=== PATIENT | female | born 1960 | race Caucasian/White ===

== ENCOUNTER 2017-03-02 19:32 | Emergency (ER) | payer BC ==
[2017-03-02 19:41] VITALS: TEMP 98.8
--- NOTE | 2017-03-02 20:28 | ED ---
Lower Extremity Injury HPI - General Chief Complaint: Extremity Injury, Lower Stated Complaint: leg pain Time Seen by Provider: 03/02/17 19:54 Source: patient, RN notes reviewed, old records reviewed Mode of arrival: ambulatory Limitations: no limitations - History of Present Illness Initial Comments: This is a 56-year-old female with chief complaint of bilateral redness to her shins her proximally 1 day. Patient reports that she had and a strep infection in her nose and had a swollen lymph node in her neck prescribed Bactrim by her primary care provider. Patient reports that she's been taking Bactrim for the past day and a half. She states that last night she started noticed the area of the redness relates she states it feels warm and hot. She states that she feels flushed all over. She denies any nausea or vomiting abdominal pain. She denies any chest pain, shortness of breath. She reports she has a mild headache right now. - Related Data Home Medications Medication Instructions Recorded Confirmed Cholecalciferol [Vitamin D3] 4,000 unit PO DAILY 07/30/16 03/02/17 Hydroxychloroquine Sulfate 200 mg PO BID 07/30/16 03/02/17 [Plaquenil] Levothyroxine Sodium [Synthroid] 25 mcg PO HS 07/30/16 03/02/17 Losartan Potassium [Cozaar] 100 mg PO DAILY 07/30/16 03/02/17 Magnesium Gluconate [Magonate] 500 mg PO DAILY 03/02/17 03/02/17 Sulfamethox-Tmp 800-160Mg [Bactrim 1 tab PO Q12HR 03/02/17 03/02/17 DS 800-160 mg] Previous Rx's Medication Instructions Recorded diphenhydrAMINE [Benadryl] 25 mg PO QID PRN #15 capsule 03/02/17 predniSONE 20 mg PO BID 5 Days 03/02/17 Allergies Allergy/AdvReac Type Severity Reaction Status Date / Time Penicillins Allergy Rash/Hives Verified 03/02/17 20:14 Review of Systems ROS Statement: Those systems with pertinent positive or pertinent negative responses have been documented in the HPI. ROS Other: All systems not noted in ROS Statement are negative. Past Medical History Past Medical History: Hypertension, Rheumatoid Arthritis (RA), Thyroid Disorder History of Any Multi-Drug Resistant Organisms: None Reported Past Surgical History: Breast Surgery, Section, Orthopedic Surgery Additional Past Surgical History / Comment(s): BREAST BIOPSIES (LEFT APRIL 2013) , BILATERAL KNEE REPLACEMENTS (LEFT JUL 2014; RIGHT 10-18-14), X2 ( 1983;1989) Past Anesthesia/Blood Transfusion Reactions: Postoperative Nausea & Vomiting ( PONV) Past Psychological History: Anxiety, Depression Additional Psychological History / Comment(s): INTERMITTENT DEPRESSION (PATIENT STATES NOT DIAGNOSED, OCCASIONAL), ALSO BELIEVES SHE HAS ADD (NOT DIAGNOSED) Smoking Status: Never smoker Past Alcohol Use History: Rare Past Drug Use History: None Reported - Past Family History Mother Family Medical History: Coronary Artery Disease (CAD), Hypertension Additional Family Medical History / Comment(s): MOTHER IS IN 90'S, NEEDS VALVE REPLACED IN HEART,D/T AGE CANNOT BE PERFORMED. Father Family Medical History: Coronary Artery Disease (CAD), Hypertension General Exam Limitations: no limitations General appearance: alert, in no apparent distress Head exam: Present: atraumatic, normocephalic, normal inspection Eye exam: Present: normal appearance, PERRL, EOMI. Absent: scleral icterus, conjunctival injection, periorbital swelling ENT exam: Present: normal exam, mucous membranes moist Neck exam: Present: normal inspection. Absent: tenderness, meningismus, lymphadenopathy Respiratory exam: Present: normal lung sounds bilaterally. Absent: respiratory distress, wheezes, rales, rhonchi, stridor Cardiovascular Exam: Present: regular rate, normal rhythm, normal heart sounds. Absent: systolic murmur, diastolic murmur, rubs, gallop, clicks GI/Abdominal exam: Present: soft, normal bowel sounds. Absent: distended, tenderness, guarding, rebound, rigid Extremities exam: Present: normal inspection, full ROM, normal capillary refill , other (Patient has area of erythema over bilateral shins. The left henley is worse than the right.). Absent: tenderness, pedal edema, joint swelling, calf tenderness Back exam: Present: normal inspection Neurological exam: Present: alert, oriented X3, CN II-XII intact Psychiatric exam: Present: normal affect, normal mood Skin exam: Present: warm, dry, intact, normal color. Absent: rash Course Vital Signs 03/02/17 03/02/17 19:40 22:00 Temperature 98.8 F Pulse Rate 90 92 Respiratory 20 18 Rate Blood Pressure 191/84 150/70 O2 Sat by Pulse 96 95 Oximetry Medical Decision Making - Medical Decision Making Patient is a 56 year old female after being placed on bactrim for one day, she has a erythematous blanchable rash on bilateral shins. She reporst that the rash feels warm. Patient has been palced on bactrim for an infection in her nose. Patient reports she took the pills for 1 day. She has a history of RA. Patient rash was discussed with Dr. Proctor. He did see the patient, it appears to be a drug related reaction. Little concern for cellulitis. Patient lab work is reviewed and negative for leukocytosis. Patient given IV solumedrol, discussed follow with with PCP andpatient will be discharged with prednisone and bactroban for infection in nose. She report that it has diminished already. - Lab Data Result diagrams: 03/02/17 20:10 03/02/17 20:10 Lab Results 03/02/17 03/02/17 Range/Units 20:10 20:10 WBC 5.1 (3.8-10.6) k/uL RBC 4.48 (3.80-5.40) m/uL Hgb 13.3 (11.4-16.0) gm/dL Hct 40.2 (34.0-46.0) % MCV 89.7 (80.0-100.0) fL MCH 29.6 (25.0-35.0) pg MCHC 33.0 (31.0-37.0) g/dL RDW 13.4 (11.5-15.5) % Plt Count 166 (150-450) k/uL Neutrophils % 75 % Lymphocytes % 15 % Monocytes % 6 % Eosinophils % 1 % Basophils % 1 % Neutrophils # 3.8 (1.3-7.7) k/uL Lymphocytes # 0.8 L (1.0-4.8) k/uL Monocytes # 0.3 (0-1.0) k/uL Eosinophils # 0.1 (0-0.7) k/uL Basophils # 0.0 (0-0.2) k/uL Sodium 140 (137-145) mmol/L Potassium 4.0 (3.5-5.1) mmol/L Chloride 105 (98-107) mmol/L Carbon Dioxide 26 (22-30) mmol/L Anion Gap 9 mmol/L BUN 17 (7-17) mg/dL Creatinine 0.92 (0.52-1.04) mg/dL Est GFR (MDRD) Af Amer >60 (>60 ml/min/1.73 sqM) Est GFR (MDRD) Non-Af >60 (>60 ml/min/1.73 sqM) Glucose 110 H (74-99) mg/dL Calcium 9.5 (8.4-10.2) mg/dL Disposition Clinical Impression: Drug reaction Disposition: HOME SELF-CARE Condition: Good Instructions: Adverse Drug Reaction (ED) Additional Instructions: Continue use the Bactroban over the area of the nose. Patient advised to use complete the steroids and Benadryl. Return to emergency Department if the area of redness does not decrease. Prescriptions: diphenhydrAMINE [Benadryl] 25 mg PO QID PRN #15 capsule PRN Reason: Itching predniSONE 20 mg PO BID 5 Days Referrals: Asha Mar MD [Primary Care Provider] - 1-2 days Time of Disposition: 21:20
[2017-03-02] MEDS ORDERED: MUPIROCIN 2% OINT 22 GM TUBE TOPICAL ONE (20:45)
[2017-03-02 20:50] LABS: Basophils % (A) 1 %; CH 29.9; CHCM 33.5; Eosinophils # (A) 0.1 k/uL (0-0.7); Eosinophils % (A) 1 %; HCT 40.2 % (34.0-46.0); HDW 2.48; HGB 13.3 gm/dL (11.4-16.0); Luc % (Auto) 2; Lymphocytes # (A) 0.8 k/uL (1.0-4.8); Lymphocytes % (A) 15 %; MCH 29.6 pg (25.0-35.0); MCV 89.7 fL (80.0-100.0); Mean Platelet Volume 7.1; Monocytes # (A) 0.3 k/uL (0-1.0); Monocytes % (A) 6 %; Neutrophils # (A) 3.8 k/uL (1.3-7.7); Neutrophils % (A) 75 %; RBC 4.48 m/uL (3.80-5.40); RDW 13.4 % (11.5-15.5); WBC 5.1 k/uL (3.8-10.6); WBC (Perox) 5.15
[2017-03-02 21:06] LABS: Anion Gap 9 mmol/L; Blood Urea Nitrogen 17 mg/dL (7-17); Calcium 9.5 mg/dL (8.4-10.2); Carbon Dioxide 26 mmol/L (22-30); Chloride 105 mmol/L (98-107); Glucose 110 mg/dL (74-99); Non-African American GFR(MDRD) >60 (>60 ml/min/1.73 sqM); Sodium 140 mmol/L (137-145)
[2017-03-02] MEDS ORDERED: methylPREDNISolone SOD SUCCI 125 MG/2 ML VIAL IM ONE (21:23)
[2017-03-02] MEDS ORDERED: diphenhydrAMINE 25 MG CAP PO STA (21:23)
[2017-03-02] MEDS ORDERED: methylPREDNISolone SOD SUCCI 125 MG/2 ML VIAL IV STA (21:26)
[2017-03-02 22:07] VITALS: BP 150/70; PULSE 92; RESP 18
== END 2017-03-02 22:00 | disposition home or self-care (01) ==
LOC: EC 19:32
DX: T37.0X5A Adverse effect of sulfonamides, initial encounter (principal); I10 Essential (primary) hypertension; E07.9 Disorder of thyroid, unspecified; M06.9 Rheumatoid arthritis, unspecified; Z88.0 Allergy status to penicillin; Z79.899 Other long term (current) drug therapy
CPT/HCPCS: 99284; 96374; 36415; 80048; 85025; J2930

== ENCOUNTER → 2017-08-01 | Outpatient (CLI) | payer BC ==
--- NOTE | 2017-08-01 18:03 | CONS ---
CONSULTATION DATE OF CONSULTATION: 08/01/2017. 56-year-old lady has been evaluated in Sleep Center for obstructive sleep apnea- hypopnea syndrome. HISTORY OF PRESENT ILLNESS/SLEEP WAKE EVALUATION: Patient originally was diagnosed with obstructive sleep apnea more than 10 years ago. Then she underwent lap band surgery and lost about 100 pounds. Subsequently, she stopped her snoring and did not have problem with her breathing at that time. Then she started to increase her weight over the years about 50 pounds and she developed snoring again. SLEEP SCHEDULE: Presently, her sleep schedule from around 11:30 p.m. until 7:30 a.m. on working days and 8:00 am on weekends. FALLING ASLEEP: No problems with falling asleep. She does watch TV in bedroom. DURING SLEEP: Presently, she wakes up from sleep 2 times with nocturia, snoring and grinding teeth. DURING THE DAY/WAKE STATE: She feels some sleepiness. [place] Sleepiness Scale significantly increased to 14. She wakes up tired, has difficulties paying attention, worry about her sleep, has problem with concentration and anxiety. PAST MEDICAL HISTORY: Positive for hypertension, hypothyroidism, rheumatoid arthritis. Murmur on the heart since a childhood. PAST SURGICAL HISTORY: Lap band surgery, bilateral knee replacement. MEDICATIONS: 1. Synthroid. 2. Plaquenil. 3. Cozaar. 4. Vitamin D supplement. 5. Probiotics. SOCIAL HISTORY: Negative for smoking. Alcohol consumption very rarely. FAMILY HISTORY: Hypertension, heart problems, hyperlipidemia, arthritis, snoring, thyroid problems. REVIEW OF SYSTEMS: Multiple awakenings from sleep, excessive daytime sleepiness, sometimes swelling of the legs. No fevers No double vision. No recent chest pain. No shortness of breath. No abdominal pain. No bleeding episodes. No blood in urine. No seizure episodes. PHYSICAL EXAM: General: lady without distress. VITAL SIGNS: BP 157/76, HR 62, RR 16, height 5 foot 3, weight 245. Neck 15-1/2 inches. Temp 97.6. Oxygen saturation at room air 97%. HEENT: PERRLA, EOMI. Evaluation of oropharynx showed low position of soft palate. NECK: Supple. No JVD. Thyroid is not palpable. LUNGS: clear to percussion and to auscultation. Good air exchange. No wheezing or rhonchi. HEART: Systolic more on aorta. ABDOMEN: Obese. Soft and nontender. Bowel sounds are present. No organomegaly appreciated. EXTREMITIES: 1+ ankle edema. LINSEED CAKE TRIMMER: Awake, alert and oriented x3. Cranial nerves II through VII intact. There is no fasciculation or atrophy noted. No focal deficits observed. heart IMPRESSION: 1. History of obstructive sleep apnea for more than 10 years. The patient stopped using CPAP and stopped snoring after bariatric surgery and losing weight for more than 100 pounds. Presently increased her weight again and developed snoring and has multiple awakenings from sleep, extremely low position of soft palate, excessive daytime sleepiness. [place] Sleepiness Scale increased to 14. Obstructive sleep apnea-hypopnea syndrome. 2. Obesity, BMI 43.3. 3. Hypothyroidism. 4. Hypertension. 5. Rheumatoid arthritis. 6. Status post lap band surgery. 7. Status post bilateral knee replacement. 8. Swelling of ankles. PLAN: 1. Polysomnography for evaluation of patient's breathing during sleep. 2. CPAP/BiPAP titration if sleep study confirms obstructive sleep apnea-hypopnea syndrome. 3. Preferable position during sleep on the side. 4. No driving if patient feels any sleepiness. Patient is aware of civil and criminal liability for unsafe driving. 5. I will see the patient for follow-up visit to explain results of the testing and following plan. Thank you very much for referring this patient for consultation. Sincerely, Dangelo Shah MD, PhD, FAASM Diplomat of [place] [employer], Sleep Medicine Board by [place] [employer] [place] [employer] Resource Manager of [facility] [place] MMODL / YOSEFN: [id number] /
== END ==
LOC: SLEEP 15:07
PROVIDERS: ATTEND Internal Medicine
DX: G47.33 Obstructive sleep apnea (adult) (pediatric) (principal); E66.9 Obesity, unspecified; E03.9 Hypothyroidism, unspecified; I10 Essential (primary) hypertension; M06.9 Rheumatoid arthritis, unspecified; M79.89 Other specified soft tissue disorders; Z96.653 Presence of artificial knee joint, bilateral; Z98.890 Other specified postprocedural states; Z68.41 Body mass index [BMI] 40.0-44.9, adult; Z79.899 Other long term (current) drug therapy
CPT/HCPCS: 99211

== ENCOUNTER → 2017-11-14 | Outpatient (CLI) | payer BC ==
--- NOTE | 2017-11-14 16:18 | PN ---
PROGRESS NOTE DATE OF SERVICE: 11/14/2017. 57-year-old lady has been followed in Sleep Center for treatment of obstructive sleep apnea-hypopnea syndrome. Recently patient had been diagnosed with obstructive sleep apnea-hypopnea syndrome by home sleep apnea test. I discussed results of the test with the patient. Then she was started on treatment with auto PAP and this is her first visit after she was started on treatment with CPAP. I checked her CPAP unit. CPAP pressure in the range of 5 to 15 on automatic regimen. Usage from the machine is 24/30 nights total and 20/30 nights for more than 4 hours with a average usage is 5.0 hours. Most of the time pressure is in the range of 11 cm of water. Leak is 28 L/minutes which is acceptable. Apnea-hypopnea index is only 1.3, which is perfect. Leak is up to 27.3%. The patient feels better when she is using her CPAP. [place] Sleepiness Scale today is only 3. MEDICATIONS: Plaquenil, thyroid supplement, lisinopril. PHYSICAL EXAM: GENERAL Patient in no distress. VITAL SIGNS BP 158/79, HR 64, RR 16, weight 249, temp 97.2, oxygen saturation room air 98% on room. HEENT PERRLA, EOMI, evaluation of oropharynx showed low position of soft palate. NECK Supple, no JVD. Thyroid is not palpable. LUNGS Clear to percussion and to auscultation. Good air exchange. No wheezing or rhonchi. HEART S1, S2 regular. No gallops or rubs. Systolic murmur on aorta. ABDOMEN Obese. Soft and nontender. Bowel sounds are present. No organomegaly appreciated. EXTREMITIES No clubbing or cyanosis. TIMBER TREATING TANK OPERATOR Awake, alert, and oriented X3. Cranial nerves 2 to 7 intact. There is no fasciculation or atrophy. noted. No focal deficits observed. IMPRESSION: 1. Obstructive sleep apnea-hypopnea syndrome on control with auto PAP. The patient demonstrated borderline compliance with treatment, benefitting from treatment. 2. Obesity. 3. Hypertension. 4. Hypothyroidism. 5. Rheumatoid arthritis. PLAN: 1. Continue treatment with CPAP every night for the whole night. 2. Losing weight. 3. Sleep hygiene with regular time in bed for at least 8 hours. 4. No driving if feeling sleepiness. Thank you very much for allowing me to participate in management of your patient. Sincerely, Dangelo Shah MD, PhD, FAASM Diplomat of [place] [employer] [place] [employer] Deputy Chief Sheriff of [facility] [place] EMMIE / CORNELIUS: [id number] /
== END | disposition home or self-care (01) ==
LOC: SLEEP 15:07
PROVIDERS: ATTEND Internal Medicine
DX: G47.33 Obstructive sleep apnea (adult) (pediatric) (principal); E66.9 Obesity, unspecified; I10 Essential (primary) hypertension; E03.9 Hypothyroidism, unspecified; M06.9 Rheumatoid arthritis, unspecified

== ENCOUNTER → 2019-04-17 | Day surgery (SDC) | payer BC ==
[2019-04-15 15:39] VITALS: BMI 42.5
[~2019-04-17] MED LIST: LACTATED RINGERS 1,000 ML IV SCH; LIDOCAINE 1% 20 ML VIAL (10MG/ML) FOR IV START INTRADERMA PRN; LIDOCAINE 1% INJ 10MG/ML (20 ML MDV) ONE; PROPOFOL 10 MG/ML 20 ML VIAL IV ONE
[2019-04-17 09:34] VITALS: TEMP 97.3
[2019-04-17 10:28] VITALS: RESP 17
--- NOTE | 2019-04-17 10:29 | P.PCN ---
Date of Procedure: 04/17/19 Procedure(s) Performed: BRIEF HISTORY: Patient is a 58-year-old pleasant female, scheduled for an elective colonoscopy as a part of evaluation of chronic diarrhea for the last few months duration. She has vomited from 3-10 day still somewhat consistency. Denies any blood or mucus in the stool. She isn't scheduled for colonoscopy to evaluate further. PROCEDURE PERFORMED: Colonoscopy with biopsy. PREOPERATIVE DIAGNOSIS: Left lower quadrant abdominal pain and chronic diarrhea.. IV sedation per Anesthesia. PROCEDURE: After informed consent was obtained, the patient, was brought into the endoscopy unit. IV sedation was administered by Anesthesia under continuous monitoring. Digital rectal examination was normal. Initially the Olympus CF-160 flexible video colonoscope was then inserted in the rectum, gradually advanced into the cecum without any difficulty. Careful examination was performed as the scope was gradually being withdrawn. Ileocecal valve and the appendiceal orifice were visualized and appeared normal. Prep was excellent. Mucosa of the cecum, ascending colon, transverse colon, descending colon appeared normal. Random biopsies were done from ascending and descending colon to rule out microscopic/collagenous colitis. There was mild diverticulitis in the sigmoid colon noted with some Purulent discharge from one of the diverticulum. There were scattered sigmoid diverticulosis seen. Rest of the, sigmoid colon, and rectum appeared normal. Retroflexion was performed in the rectum and no lesions were seen. The patient tolerated the procedure well. IMPRESSION: Mild sigmoid diverticulitis Scattered sigmoidal diverticulosis No evidence of colitis or colorectal neoplasia RECOMMENDATIONS: Findings of this examination were discussed with the patient as well as a family. He was advised to follow with the biopsy results. In the meantime she'll be given a trial of Flagyl and Cipro for 10 days she'll be seen in the office in 3 weeks
[2019-04-17 10:44] VITALS: BP 147/85; PULSE 64
== END ==
LOC: ORWHC2ENDO 08:53
PROVIDERS: ATTEND Internal Medicine Gastroenterology
DX: K57.32 Diverticulitis of large intestine without perforation or abscess without bleeding (principal); K57.30 Diverticulosis of large intestine without perforation or abscess without bleeding; K52.9 Noninfective gastroenteritis and colitis, unspecified; I10 Essential (primary) hypertension; E07.9 Disorder of thyroid, unspecified; F39 Unspecified mood [affective] disorder; Z79.1 Long term (current) use of non-steroidal anti-inflammatories (NSAID); Z79.890 Hormone replacement therapy; Z79.899 Other long term (current) drug therapy
CPT/HCPCS: 45380; 88305; J2001; J2704

== ENCOUNTER → 2019-05-19 | Outpatient (CLI) | payer BC ==
[2019-05-19 15:55] VITALS: BP 150/71; PULSE 66; TEMP 98.6; BMI 42.0
--- NOTE | 2019-05-19 16:08 | P.BASOAP ---
Subjective Progress Note Date: 05/19/19 Principal diagnosis: Morbid obesity Patient returns today for recheck. Had her initial lap band placed by Dr. Morris. Last adjustment 2015. Had 0.5 added for a total of 2.5 at that time. Intermittently over the years she has had issues related to diarrhea. This has been bad lately with up to 12 times per day usually aggravated by food intake. Better with bland diet. Has been incontinent at times. Mild left lower quadrant pain at times. Recent colonoscopy done by GI. Has some relief with Lomotil. States Bentyl causes significant constipation issues. Would like to try emptying her band to see if this would help. No dysphagia. No nausea or vomiting. Objective - Vital Signs Vital signs: Vital Signs Temp 98.6 F 05/19/19 15:52 Pulse 66 05/19/19 15:52 Resp BP 150/71 05/19/19 15:52 Pulse Ox Intake & Output 05/18/19 05/19/19 05/19/19 18:59 06:59 18:59 Weight 109.361 kg - Exam Abdomen: Soft, nontender, nondistended Assessment/Plan (1) Morbid obesity Narrative/Plan: Will into the patient's band at this time to see if this helps with her diarrhea although I told the patient is likely would not make a difference. 2.4 mL was evacuated aseptically using a Small needle. No further fluid within the band. Follow-up as needed. Plan: Date: 05/19/19 Initial Weight: Initial BMI: Current Weight: 109.361 kg Current BMI: 42.0 Type of Surgery: Total Volume in Band: 0 Previous Volume: 2.5 Volume Removed: 2.4 Volume Added: Band Size:
== END | disposition home or self-care (01) ==
LOC: BARWHC3 15:02
PROVIDERS: ATTEND Surgery
DX: E66.01 Morbid (severe) obesity due to excess calories (principal); Z68.41 Body mass index [BMI] 40.0-44.9, adult
CPT/HCPCS: 99212

== ENCOUNTER → 2019-08-18 | Outpatient (CLI) | payer BC ==
[2019-08-18 16:10] VITALS: BP 146/83; PULSE 64; RESP 16; TEMP 98.5; BMI 42.9
--- NOTE | 2019-08-18 22:26 | P.BASOAP ---
Subjective Progress Note Date: 08/18/19 Principal diagnosis: Morbid obesity Patient had her band emptied last visit. This did not have an effect on her chronic diarrhea unfortunately. She has been worked up for her diarrhea by GI. He is interested in having fluid back to the band. 2.4 cc Was previously removed.does have some increased reflux since her band was emptied. Objective - Vital Signs Vital signs: Vital Signs Temp 98.5 F 08/18/19 16:07 Pulse 64 08/18/19 16:07 Resp 16 08/18/19 16:07 BP 146/83 08/18/19 16:07 Pulse Ox Intake & Output 08/18/19 08/18/19 08/19/19 06:59 18:59 06:59 Weight 111.584 kg - Exam Abdomen: Soft, nontender, nondistended Assessment/Plan (1) Morbid obesity Narrative/Plan: Will add 1.5 cc to the patient's band. This was performed in an aseptic technique with a Small needle. Patient tolerated water following that. Patient will contact me for follow-up. Plan: Date: 08/18/19 Initial Weight: Initial BMI: Current Weight: 111.584 kg Current BMI: 42.9 Type of Surgery: Total Volume in Band: 0 Previous Volume: Volume Removed: Volume Added: Band Size:
== END ==
LOC: BARWHC3 15:23
PROVIDERS: ATTEND Surgery
DX: E66.01 Morbid (severe) obesity due to excess calories (principal); Z68.41 Body mass index [BMI] 40.0-44.9, adult
CPT/HCPCS: 99212

== ENCOUNTER → 2021-06-06 | Outpatient (CLI) | payer BC ==
[2021-06-06 14:30] VITALS: BP 145/81; PULSE 69; TEMP 98.2; BMI 43.4
--- NOTE | 2021-06-06 14:33 | P.BASOAP ---
Subjective Progress Note Date: 06/06/21 Principal diagnosis: Morbid obesity Patient returns for reevaluation. She was last seen in August 2019. Recently she was lifting some heavy objects and felt an increased pain at her port site. That pain has since resolved. She has gained 3 pounds. She is asking for a band adjustment at this time. Denies nausea and vomiting. No heartburn. Objective - Vital Signs Vital signs: Vital Signs Temp 98.2 F 06/06/21 14:28 Pulse 69 06/06/21 14:28 Resp BP 145/81 06/06/21 14:28 Pulse Ox Intake & Output 06/05/21 06/06/21 06/06/21 18:59 06:59 18:59 Weight 112.945 kg - Exam Abdomen: Soft, nontender, nondistended, no palpable hernia, mild tenderness at port site Assessment/Plan (1) Morbid obesity Narrative/Plan: Patient doing well at this time. Requesting a band adjustment. Currently has 1.5 mL in her band. It was emptied when she was at 2.4. We will increase to 2.0 mL at this time. Patient will contact me if she has any recurrent symptoms of pain at her port site. The patient's lap band port was palpated. The site was aseptically prepped. The Small needle was advanced into the port. A total of 0.5 ml of fluid was added for a total of 2.0 mL. Pressure was held and a sterile dressing was applied. Plan: Date: 06/06/21 Initial Weight: Initial BMI: Current Weight: 112.945 kg Current BMI: 43.4 Type of Surgery: Total Volume in Band: 2.0 Previous Volume: Volume Removed: Volume Added: 0.5 Band Size:
== END ==
LOC: BARWHC3 13:52
PROVIDERS: ATTEND Surgery
DX: E66.01 Morbid (severe) obesity due to excess calories (principal); Z46.51 Encounter for fitting and adjustment of gastric lap band; Z68.41 Body mass index [BMI] 40.0-44.9, adult; Z88.0 Allergy status to penicillin; Z88.2 Allergy status to sulfonamides
CPT/HCPCS: 99212

== ENCOUNTER → 2021-08-28 | Outpatient (CLI) | payer BC ==
[2021-08-28 15:46] VITALS: BP 152/76; PULSE 72; RESP 18; TEMP 98.2; BMI 42.3
--- NOTE | 2021-08-28 16:01 | P.HPBAR ---
Bariatric H&P - History & Physicial H&P Date: 08/28/21 History & Physicial: Visit/CC: follow up / lap band Patient initial contact: Initial weight: Initial weight in pounds: Height: 5 ft 3.5 in Initial BMI: Last weight: Current weight: 110.223 kg Current weight in pounds: 243.00 Current BMI: 42.3 Anton body weight (based on NIH guidelines): 53.297 kg Excess body weight loss: The patient is a 61 year-old F who presents for Bariatric Assessment. Patient has complaints of pain at her LAP-BAND port site. She is requesting have her LAP-BAND device removed. Past Medical History Past Medical History: Hypertension, Osteoarthritis (OA), Rheumatoid Arthritis (RA), Thyroid Disorder Additional Past Medical History / Comment(s): freq diarrhea, gas/gurgling (diverticulitis dx 04/17/[address] Mcintyre), hypothyroidism, History of Any Multi-Drug Resistant Organisms: None Reported Past Surgical History: Breast Surgery, Section, Orthopedic Surgery Additional Past Surgical History / Comment(s): BREAST BIOPSIES (LEFT APRIL 2013 Right side date unknown)), BILATERAL KNEE REPLACEMENTS (LEFT JUL 2014; RIGHT 10-18-14), X2 (1983;1989),lap band-fluid present Past Anesthesia/Blood Transfusion Reactions: Postoperative Nausea & Vomiting (PONV) Additional Past Anesthesia/Blood Transfusion Reaction / Comm: No blood transfusion to date (05/19/19) Past Psychological History: ADD/ADHD, Anxiety, Depression Additional Psychological History / Comment(s): INTERMITTENT DEPRESSION (PATIENT STATES NOT DIAGNOSED, OCCASIONAL), ALSO BELIEVES SHE HAS ADD (NOT DIAGNOSED) Smoking Status: Never smoker Past Alcohol Use History: Rare Past Drug Use History: None Reported - Past Family History Mother Family Medical History: Coronary Artery Disease (CAD), Hypertension Additional Family Medical History / Comment(s): at age 93 from old age. also had abdominal aortic aneurysm for years Father Family Medical History: Coronary Artery Disease (CAD), Hypertension Additional Family Medical History / Comment(s): at age 88 from heart attack Surgical - Exam Vital Signs Temp Pulse Resp BP 98.2 F 72 18 152/76 08/28/21 15:22 08/28/21 15:22 08/28/21 15:22 10/18/21 15:22 - General well developed, well nourished, no distress - Eyes PERRL - ENT normal pinna - Neck no masses - Respiratory normal expansion - Cardiovascular Rhythm: regular - Abdomen Mild tenderness at LAP-BAND port site Abdomen: soft, non tender Bariatric Assessment & Plan Plan: Pain at LAP-BAND port site. Patient was scheduled for removal of LAP-BAND device. She is aware the risk of weight gain. Bariatric Checklist Checklist: Plan: Checklist: EGD: 1. Hiatal hernia: 2. H. Pylori: HgbA1c: Vitamin D: Smoking: Never smoker Primary care physician referral: [facility] Psychiatry clearance: Cardiology clearance: Sleep study: Diet journal: VTE risk score: VTE risk level: Rehab needs at discharge:
[2021-08-28 16:16] LABS: Basophils % (A) 1 %; Eosinophils % (A) 1 %; HGB 13.5 gm/dL (11.4-16.0); Lymphocytes # (A) 0.9 k/uL (1.0-4.8); Lymphocytes % (A) 17 %; MCH 29.8 pg (25.0-35.0); MCHC 32.2 g/dL (31.0-37.0); MCV 92.6 fL (80.0-100.0); Mean Platelet Volume 8.1; Monocytes # (A) 0.3 k/uL (0-1.0); Monocytes % (A) 6 %; Neutrophils # (A) 3.8 k/uL (1.3-7.7); Neutrophils % (A) 73 %; Platelet Count 184 k/uL (150-450); RBC 4.53 m/uL (3.80-5.40); RDW 12.8 % (11.5-15.5); WBC 5.3 k/uL (3.8-10.6)
[2021-08-29 05:16] LABS: ALT 20 U/L (8-44); AST 18 U/L (13-35); African American GFR (CKD) 82.5 (60.0-200.0); Albumin 4.7 g/dL (3.8-4.9); Alkaline Phosphatase 73 U/L (41-126); BUN/Creat Ratio 20.18 Ratio (12.00-20.00); Blood Urea Nitrogen 17.6 mg/dL (9.0-27.0); Calcium 9.6 mg/dL (8.7-10.3); Carbon Dioxide 22.5 mmol/L (21.6-31.8); Chloride 102 mmol/L (96-109); Globulin 2.3 g/dL (1.6-3.3); Glucose 112 mg/dL (70-110); Non-African American GFR(CKD) 71.2 (60.0-200.0); Potassium 4.1 mmol/L (3.5-5.5); Sodium 141 mmol/L (135-145)
[2021-08-29 05:51] LABS: Folate, Serum >20.00 ng/mL (4.40-31.00)
== END ==
LOC: BARWHC3 15:01
PROVIDERS: ATTEND Surgery
DX: Z08 Encounter for follow-up examination after completed treatment for malignant neoplasm (principal); I10 Essential (primary) hypertension; M19.90 Unspecified osteoarthritis, unspecified site; M06.9 Rheumatoid arthritis, unspecified; E03.9 Hypothyroidism, unspecified; Z98.84 Bariatric surgery status; F90.9 Attention-deficit hyperactivity disorder, unspecified type; F32.9 Major depressive disorder, single episode, unspecified; F41.9 Anxiety disorder, unspecified; Z88.0 Allergy status to penicillin; Z88.2 Allergy status to sulfonamides
CPT/HCPCS: 80053; 82306; 82607; 82746; 83036; 84425; 85025; 93005; 99212

== ENCOUNTER → 2021-08-28 | Outpatient (CLI) | payer BC | END | disposition home or self-care (01) | LOC: LABWHC1 15:30 | PROVIDERS: ATTEND Surgery | DX: E88.81 Metabolic syndrome and other insulin resistance (principal); E55.9 Vitamin D deficiency, unspecified; M25.50 Pain in unspecified joint; Z79.01 Long term (current) use of anticoagulants; Z79.02 Long term (current) use of antithrombotics/antiplatelets; M06.4 Inflammatory polyarthropathy; E66.01 Morbid (severe) obesity due to excess calories | CPT/HCPCS: 36415; 85652; 86140 ==

== ENCOUNTER 2021-09-06 06:37 | Day surgery (SDC) | payer BC ==
[2021-09-04 15:07] VITALS: BMI 41.8
[~2021-09-06 06:37] MED LIST changes: -LIDOCAINE 1% 20 ML VIAL (10MG/ML) FOR IV START INTRADERMA PRN; -LIDOCAINE 1% INJ 10MG/ML (20 ML MDV) ONE; +ONDANSETRON 4 MG/2 ML VIAL IVP ONE; -PROPOFOL 10 MG/ML 20 ML VIAL IV ONE; +SCOPOLAMINE 1.5MG/72HR PATCH TRANSDERM ONE
[2021-09-06] MEDS ORDERED: HYDROmorphone 0.5 MG/0.5 ML SYRINGE IVP PRN (07:00)
[2021-09-06] MEDS ORDERED: DEXAMETHASONE SOD PHOSPHATE 4 MG/ML 1 ML VIAL IVP ONE (07:04)
[2021-09-06] MEDS: ENOXAPARIN 40 MG/0.4 ML SYRINGE SQ STA ×2 (07:04→07:55)
[2021-09-06] MEDS ORDERED: LIDOCAINE 1% (10MG/ML) FOR IV START INTRADERMA ONE (07:04)
[2021-09-06] MEDS ORDERED: LIDOCAINE 1% INJ 10MG/ML (20 ML MDV) ONE (08:01)
[2021-09-06] MEDS ORDERED: fentaNYL (PF) 50 MCG/ML 2 ML AMP ONE (08:01)
[2021-09-06] MEDS ORDERED: SUCCINYLCHOLINE CHLORIDE 100 MG/5 ML SYR IV ONE (08:01)
[2021-09-06] MEDS ORDERED: MIDAZOLAM 2 MG/2 ML VIAL ONE (08:01)
[2021-09-06] MEDS ORDERED: GLYCOPYRROLATE 0.2 MG/ML 2 ML VIAL ONE (08:01)
[2021-09-06] MEDS ORDERED: ROCURONIUM 10 MG/ML (5 ML VIAL) IV ONE (08:01)
[2021-09-06] MEDS ORDERED: NEOSTIGMINE 1 MG/ML 10 ML VIAL ONE (08:01)
[2021-09-06] MEDS ORDERED: PROPOFOL 10 MG/ML 20 ML VIAL IV ONE (08:01)
--- NOTE | 2021-09-06 08:01 | P.GSHP ---
History of Present Illness H&P Date: 09/06/21 Chief Complaint: GERD, dysphagia This is a 61-year-old female who presents today for removal of LAP-BAND system. She had chronic issues with GERD and dysphagia. She wishes to have the LAP-BAND system removed. Past Medical History Past Medical History: Hypertension, Osteoarthritis (OA), Rheumatoid Arthritis (RA), Sleep Apnea/CPAP/BIPAP, Thyroid Disorder Additional Past Medical History / Comment(s): freq diarrhea, hx diverticulitis, hypothyroidism, heart murmur., varicose veins., C-pap machine. History of Any Multi-Drug Resistant Organisms: None Reported Past Surgical History: Breast Surgery, Section, Orthopedic Surgery Additional Past Surgical History / Comment(s): BREAST BIOPSIES, BILATERAL KNEE REPLACEMENTS (2013) X2 ,lap band-fluid (09/2001) Past Anesthesia/Blood Transfusion Reactions: Previous Problems w/ Anesthesia, Postoperative Nausea & Vomiting (PONV) Additional Past Anesthesia/Blood Transfusion Reaction / Comment(s): mother=migraines post-op Past Psychological History: Anxiety, Depression Smoking Status: Never smoker Past Alcohol Use History: Occasional Past Drug Use History: None Reported - Past Family History Mother Family Medical History: Coronary Artery Disease (CAD), Hypertension Additional Family Medical History / Comment(s): at age 93 from old age. also had abdominal aortic aneurysm for years Father Family Medical History: Coronary Artery Disease (CAD), Hypertension Additional Family Medical History / Comment(s): at age 88 from heart attack Medications and Allergies Home Medications Medication Instructions Recorded Confirmed Type Hydroxychloroquine Sulfate 200 mg PO BID 07/30/16 09/06/21 History [Plaquenil] Levothyroxine Sodium [Synthroid] 25 mcg PO HS 07/30/16 09/06/21 History Losartan Potassium [Cozaar] 100 mg PO HS 07/30/16 09/06/21 History Diclofenac Sodium Gel [Voltaren 1 dose TOPICAL BID PRN 04/15/19 09/06/21 History Gel] L.acidoph,Paracasei, B.lactis 1 each PO DAILY 04/15/19 09/06/21 History [Probiotic] Calcium Carbonate [Calcium] 1,200 mg PO DAILY 09/04/21 09/06/21 History Cholecalciferol [Vitamin D3 (10 40 mcg PO DAILY 09/04/21 09/06/21 History Mcg = 400 Iu)] Loperamide [Imodium] 2 mg PO DIRECTED PRN 09/04/21 09/06/21 History Allergies Allergy/AdvReac Type Severity Reaction Status Date / Time Penicillins Allergy Rash/Hives Verified 09/06/21 07:02 sulfamethoxazole Allergy redness Verified 09/06/21 07:02 [From Bactrim] love legs trimethoprim [From Bactrim] Allergy redness Verified 09/06/21 07:02 love legs Surgical - Exam Vital Signs Temp Pulse Resp BP Pulse Ox 98.6 F 72 16 163/73 98 09/06/21 07:03 09/06/21 07:03 09/06/21 07:03 09/06/21 07:03 09/06/21 07:03 - General well developed, well nourished, no distress - Eyes PERRL - ENT normal pinna - Neck no masses - Respiratory normal expansion - Cardiovascular Rhythm: regular - Abdomen Abdomen: soft, non tender Assessment and Plan Assessment: GERD, dysphagia. We'll perform removal of LAP-BAND system.
[2021-09-06] MEDS ORDERED: BUPIVACAIN-EPI 0.25%-1:200,000 30 ML VIAL SQ ONE (08:34)
[2021-09-06] MEDS ORDERED: LACTATED RINGERS 1,000 ML IV ONE ×2 (08:45)
[2021-09-06 09:10] VITALS: TEMP 97
--- NOTE | 2021-09-06 09:13 | P.OP ---
Date of Procedure: 09/06/21 Preoperative Diagnosis: GERD, dysphagia Postoperative Diagnosis: GERD, dysphagia Procedure(s) Performed: Removal of LAP-BAND system Anesthesia: DEANN Surgeon: David Morris Estimated Blood Loss (ml): 10 Pathology: none sent Condition: stable Disposition: PACU Description of Procedure: Patient's placed the operative table in the supine position. She received general anesthesia. She was then placed in dorsal lithotomy position. Her abdomen was prepped and draped usual sterile fashion. The skin incision sites were anesthetized 1% local Xylocaine. The skin was incised at the port site. Using blunt and sharp dissection with cautery the LAP-BAND port was dissected free. The PEG tube was then cut. Using the 5 mm optical trocar under direct visualization incision he peritoneal catheter. The abdomen was insufflated. Next a fibrillar trocar is placed in the right upper quadrant right lateral and left lateral position. Another 5 atrocious placed in the left periumbilical position. The trochars the ports was replaced the 15 mm trocar. The liver was retracted. The laparoscopic tube was followed to the band. The adhesions over the LAP-BAND device were lysed using left cautery. The LAP-BAND was then cut using the Harmonic scissors. And then the LAP-BAND was extracted through the 15 mm trocar site. There is no injury to the stomach. These abdomen was desufflated. The skin incision sites were closed with 3-0 Monocryl suture. Dermabond was applied. Top she will was sent to recovery room in stable condition.
[2021-09-06] MEDS ORDERED: ONDANSETRON 4 MG/2 ML VIAL IVP ONE (09:29)
[2021-09-06 10:21] VITALS: RESP 16
[2021-09-06 10:55] VITALS: BP 131/77; PULSE 65
== END 2021-09-06 11:12 | disposition home or self-care (01) ==
LOC: OR 06:37
PROVIDERS: ATTEND Surgery
DX: R13.10 Dysphagia, unspecified (principal); I10 Essential (primary) hypertension; M19.90 Unspecified osteoarthritis, unspecified site; M06.9 Rheumatoid arthritis, unspecified; K21.9 Gastro-esophageal reflux disease without esophagitis; G47.30 Sleep apnea, unspecified; E03.9 Hypothyroidism, unspecified; F41.9 Anxiety disorder, unspecified; R01.1 Cardiac murmur, unspecified; I83.90 Asymptomatic varicose veins of unspecified lower extremity; Z96.653 Presence of artificial knee joint, bilateral; Z98.891 History of uterine scar from previous surgery; Z98.890 Other specified postprocedural states; Z87.19 Personal history of other diseases of the digestive system; Z82.49 Family history of ischemic heart disease and other diseases of the circulatory system; Z79.890 Hormone replacement therapy; Z79.899 Other long term (current) drug therapy; Z88.0 Allergy status to penicillin; Z88.2 Allergy status to sulfonamides
CPT/HCPCS: 43774; J2250; J1100; J2710; J0690; J2405; J2001; J1650; J3010; J0330; J2704; J1170

== ENCOUNTER → 2021-09-11 | Outpatient (CLI) | payer BC ==
[2021-09-11 16:26] VITALS: BP 173/80; PULSE 66; RESP 16; TEMP 98.7; BMI 41.6
--- NOTE | 2021-09-21 19:39 | P.HPBAR ---
Bariatric H&P - History & Physicial H&P Date: 09/11/21 History & Physicial: Visit/CC: Band Removal f/u Patient initial contact: Initial weight: Initial weight in pounds: Height: 5 ft 3.5 in Initial BMI: Last weight: Current weight: 108.409 kg Current weight in pounds: 239.00 Current BMI: 41.6 Rosamond body weight (based on NIH guidelines): 53.297 kg Excess body weight loss: The patient is a 61 year-old F who presents for Bariatric Assessment. Patient is status post removal LAP-BAND. She has some minimal complaints of pain. Past Medical History Past Medical History: Hypertension, Osteoarthritis (OA), Rheumatoid Arthritis (RA), Sleep Apnea/CPAP/BIPAP, Thyroid Disorder Additional Past Medical History / Comment(s): freq diarrhea, hx diverticulitis, hypothyroidism, heart murmur., varicose veins., C-pap machine. History of Any Multi-Drug Resistant Organisms: None Reported Past Surgical History: Breast Surgery, Section, Orthopedic Surgery Additional Past Surgical History / Comment(s): BREAST BIOPSIES, BILATERAL KNEE REPLACEMENTS (2013) X2 ,lap band-fluid (09/2001). lap band removal 09-06-21 Past Anesthesia/Blood Transfusion Reactions: Previous Problems w/ Anesthesia, Postoperative Nausea & Vomiting (PONV) Additional Past Anesthesia/Blood Transfusion Reaction / Comm: mother=migraines post-op Past Psychological History: Anxiety, Depression Additional Psychological History / Comment(s): INTERMITTENT DEPRESSION (PATIENT STATES NOT DIAGNOSED, OCCASIONAL), ALSO BELIEVES SHE HAS ADD (NOT DIAGNOSED) Smoking Status: Never smoker Past Alcohol Use History: Occasional Past Drug Use History: None Reported - Past Family History Mother Family Medical History: Coronary Artery Disease (CAD), Hypertension Additional Family Medical History / Comment(s): at age 93 from old age. also had abdominal aortic aneurysm for years Father Family Medical History: Coronary Artery Disease (CAD), Hypertension Additional Family Medical History / Comment(s): at age 88 from heart attack Surgical - Exam Vital Signs Temp Pulse Resp BP 98.7 F 66 16 173/80 09/11/21 16:24 09/11/21 16:24 09/11/21 16:24 09/11/21 16:24 - General well developed, well nourished, no distress - Eyes PERRL - ENT normal pinna - Neck no masses - Respiratory normal expansion - Abdomen Incision sites clean dry intact Abdomen: soft Bariatric Assessment & Plan Plan: Status post removal LAP-BAND. Patient will as needed. Bariatric Checklist Checklist: Plan: Checklist: EGD: 1. Hiatal hernia: 2. H. Pylori: HgbA1c: Vitamin D: Smoking: Never smoker Primary care physician referral: [facility] Psychiatry clearance: Cardiology clearance: Sleep study: Diet journal: VTE risk score: VTE risk level: Rehab needs at discharge:
== END ==
LOC: BARWHC3 14:39
PROVIDERS: ATTEND Surgery
DX: Z09 Encounter for follow-up examination after completed treatment for conditions other than malignant neoplasm (principal); I10 Essential (primary) hypertension; M19.90 Unspecified osteoarthritis, unspecified site; M06.9 Rheumatoid arthritis, unspecified; E03.9 Hypothyroidism, unspecified; Z98.84 Bariatric surgery status; Z88.0 Allergy status to penicillin; Z88.2 Allergy status to sulfonamides
CPT/HCPCS: 99211